=== PATIENT | female | born 2000 | race Caucasian/White ===

== ENCOUNTER 2024-04-09 04:36 | Day surgery (SDC) | payer OTHER ==
[2024-04-07 15:06] VITALS: BMI 25.0
[2024-04-09] MEDS ORDERED: MIDAZOLAM HCL 2 MG/2 ML SINGLE DOSE VIAL ONE (10:43)
[2024-04-09] MEDS ORDERED: ONDANSETRON 4 MG/2 ML VIAL ONE (10:44)
[2024-04-09] MEDS ORDERED: KETOROLAC TROMETHAMINE 30 MG/1 ML VIAL ONE (10:44)
[2024-04-09] MEDS ORDERED: DEXAMETHASONE SOD PHOSPHATE 4 MG/1 ML VIAL ONE (10:44)
[2024-04-09] MEDS ORDERED: PROPOFOL 20 ML ONE (10:44)
[2024-04-09] MEDS: IODINE/POTASSIUM IODIDE 5%/10% 14 ML BOTTLE NR ONE (11:17)
[2024-04-09] MEDS ORDERED: ONDANSETRON 4 MG/2 ML VIAL IVPUSH PRN (12:06)
[2024-04-09] MEDS ORDERED: oxyCODONE HCL 5 MG TABLET PO PRN (12:06)
[2024-04-09 13:46] VITALS: RESP 20
[2024-04-09 14:18] VITALS: BP 113/72; PULSE 91; TEMP 98.6
== END 2024-04-09 14:40 | disposition home or self-care (01) ==
LOC: JASU-SURG 04:36
PROVIDERS: ATTEND Obstetrics & Gynecology
PROC: 0UBC7ZX Excision of Cervix, Via Natural or Artificial Opening, Diagnostic (ICD-10-PCS; principal; 2024-04-09 10:30)
DX: N72 Inflammatory disease of cervix uteri (principal)
CPT/HCPCS: 36415; 80053; 81025; 84702; 85027; 85610; 85730; 86780; 86850; 86900; 86901; 88305-TC; 88307-TC; 88341-TC; 88342-TC; 94760